=== PATIENT | male | born 1990 | race Caucasian/White ===

== ENCOUNTER 2023-01-31 19:03 | Inpatient (IN) ==
--- NOTE | 2023-01-31 19:15 | ED Triage Note ---
Date of Service January 31, 2023 History of Present Illness This patient was briefly evaluated while in triage. An abbreviated physical exam was performed. This patient is a 32-year-old Male who presents to the ED for evaluation of worsening mental health issues. Increased panic attacks and suicidal thoughts. Relapsed on meth last week. Physical Exam Limited Triage Exam: VITALS: Vitals are noted on the nurse's note and reviewed by myself. Vital s igns stable. GENERAL: White male who is anxious, but cooperative. HEART: Regular rate and rhythm without murmurs gallops or rubs. LUNGS: Clear to auscultation bilaterally without wheezes, rales or rhonchi. No retractions or accessory muscle use. NEURO: Patient was alert and oriented to person place and time. CN II through XII grossly intact. Initial orders for labs and / or imaging were placed and patient was placed in the waiting area until a bed is available. Please see further documentation for the full ED course. MDM / Impression Impression Impression: Bipolar disorder, Feeling suicidal
[2023-01-31 20:08] LABS: Basophils # (auto) 0.03 K/uL (0.00-0.20); Basophils % (auto) 0.4 %; Eosinophils % (auto) 7.2 %; Hemoglobin 15.7 g/dl (14.0-18.0); Immature Granulocytes # (auto) 0.04 K/uL (0.01-0.20); Immature Granulocytes % (auto) 0.5 %; Lymphocytes # (auto) 2.54 K/uL (1.20-3.40); Lymphocytes % (auto) 30.6 %; Mean Corpuscular Hemoglobin 30.7 pg (25.0-34.0); Mean Corpuscular Hgb Conc 34.1 g/dL (32.0-36.0); Mean Platelet Volume 10.1 fL (9.4-12.4); Monocytes # (auto) 0.56 K/uL (0.11-0.59); Monocytes % (auto) 6.7 %; Neutrophils # (auto) 4.54 K/uL (1.40-6.50); Neutrophils % (auto) 54.6 %; Platelet Count 247 K/uL (130-400); RDW Coefficient of Variation 12.1 % (11.5-14.5); RDW Standard Deviation 39.9 fL (36.4-46.3); Red Blood Count 5.11 M/uL (4.70-6.10); White Blood Count 8.31 K/ul (4.8-10.8)
[2023-01-31 20:26] LABS: Appearance Urine Clear (Clear); Bacteria Urine Automated Negative (Negative); Bilirubin Urine Negative (Negative); Blood Urine Negative (Negative); Color Urine Yellow; Epithelial Cell Urine Auto 20-30 /lpf (0-5); Glucose Urine UA Negative (Negative); Ketones Urine Negative (Negative); Leukocyte Esterase Urine Negative (Negative); Nitrite Urine Negative (Negative); Protein Urine 1+ (Negative); RBC Urine Automated 0-4 /hpf (0-4); Specific Gravity Urine 1.016 (1.000-1.030); Urobilinogen Urine Negative (Negative)
[2023-01-31 20:28] LABS: Acetaminophen < 3 ug/ml (10-30); Salicylate < 3.0 mg/dl (3.0-30)
[2023-01-31 20:31] LABS: Albumin Globulin Ratio 1.4 (0.9-2); Bilirubin,Total 0.3 mg/dl (0.2-1.0); Calcium 9.6 mg/dl (8.6-10.3); Creatinine Clr Calc Pharmacy 162.6 ml/min; Est GFR (Non-African American) 118.2 ml/min; Globulin 2.9 gm/dl (2.5-4.0); Potassium 3.5 mmol/L (3.5-5.1); Total Protein 6.9 gm/dl (6.0-8.3)
[2023-01-31 20:36] LABS: Sperm Urine Present (None Prsent)
[2023-01-31 20:37] LABS: Cast Urine Automated 0 /lpf (0-5); Mucus Urine Present (None Prsent)
[2023-01-31 20:45] LABS: Thyroid Stimulating Hormone 0.863 uIu/ml (0.300-4.500)
[2023-01-31 20:49] LABS: Amphetamines+Metham, Urine Pos (Neg); Barbiturates, Urine Neg (Neg); Benzodiazepine, Urine Pos (Neg); Cocaine, Urine Neg (Neg); MDMA (Ecstacy), Urine Pos (Neg); Methadone, Urine Neg (Neg); Opiate, Urine Neg (Neg); Phencyclidine, Urine Neg (Neg)
--- NOTE | 2023-01-31 20:53 | Emergency Department Note ---
Impression & Plan Bipolar disorder, Feeling suicidal ED Provider Note NAME: KAREN ANTONIO AGE: 32 SEX: M : 1990 ARRIVES VIA: Walk-In INFORMANT: Patient, ED PROVIDER(S): Lan Gautam MD CHIEF COMPLAINT: SI, relapse HPI: This is a 30-year-old male with history of anxiety, PTSD, bipolar disorder presenting for SI. Patient is that he has had increasing SI thoughts without active plan. He notes that he is also relapsed on methamphetamines over the past 3 days. He notes that he does not feel well, is taking medication as prescribed but is still not feeling better. He states that he is having increasing thoughts of suicide without thoughts of homicide. He is not hearing voices. No current chest pain, short of breath, fever, chills. ROS: See above HPI for pertinent positives & negatives. A total of 10 systems reviewed and were otherwise negative. PAST MEDICAL HISTORY: See Below PAST SURGICAL HISTORY: See Below FAMILY HISTORY: See Below SOCIAL HISTORY: See Below HOME MEDICATIONS: See Below ALLERGIES: See Below VITALS: See Below PHYSICAL EXAMINATION: General: resting comfortably in no acute distress Head: Normocephalic and atraumatic Eyes: Normal inspection, extraocular muscles intact, no conjunctival pallor Ear, nose, throat: Normal external exam Neck: Normal range of motion Respiratory: Patient is in no respiratory distress, lungs clear to auscultation bilaterally Cardiovascular: RRR without murmur appreciated GI: soft, nontender, no guarding or rebound Extremities: pulses intact with good cap refills, no LE pitting edema or calf tenderness Neuro: The patient awake and alert, appropriately conversive,no focal decifits Skin: Warm, dry, and intact MEDICAL DECISION MAKING: This is a 32-year-old male presenting for SI. Patient is voluntarily here requesting inpatient evaluation. He has no active plan but is significantly suicidal. We will get basic blood work and assess for medical clearance. Patient's blood work and urinalysis revealing of left any abnormalities. His UDS does reveal methamphetamines/amphetamines, MDMA, benzodiazepines and THC. Patient is medically clear at this time. patient voluntary signed 201. Patient taken upstairs for psychiatric evaluation Triage Nursing notes reviewed. Prior medical records reviewed Vital Signs: reviewed and remarkable for no significant abnormalities Past Med/Surg History Medical History (Updated 02/01/23 @ 01:30 by Lan Gautam MD) Anxiety PTSD (post-traumatic stress disorder) GERD (gastroesophageal reflux disease) Epigastric pain C. difficile colitis Bipolar disorder Surgical History History of hernia repair History of placement of ear tubes History of esophagogastroduodenoscopy (EGD) H/O wisdom tooth extraction Family History Other Diabetes Heart disease Hypertension Social History Smoking Status: Current every day smoker Tobacco Type: Cigarettes Hx Alcohol Use: Yes Alcohol Intake Frequency Comment: 2 times a year Hx Substance Use: Yes Preferred Language: Tajik marital status: Single current occupational status: unemployed Feels Safe at Home: Yes Gender Identity: Male Allergies Allergies Allergy/AdvReac Type Severity Reaction Status Date / Time No Known Allergies Allergy NONE Verified 02/26/18 17:11 Home Meds Home Medications Medication Instructions Recorded Confirmed prazosin 5 mg PO HS 02/13/21 01/31/23 Zyprexa 20 mg PO HS 11/19/21 01/31/23 melatonin 5 mg PO HS 11/19/21 01/31/23 Results & Data (ED) Vital Signs Vital Signs - 24 hr 01/31/23 19:14 01/31/23 23:32 Temperature 36.3 C L Temperature Source Temporal Artery Scan Pulse Rate 99 H Pulse Rate [Left Finger] 83 Respiratory Rate 18 20 Respiratory Effort / Characteristics Non-Labored Respiratory Depth Normal Respiratory Pattern Regular Blood Pressure 141/76 H Blood Pressure [Left Arm] 148/76 H Blood Pressure Mean 97 Blood Pressure Mean [Left Arm] 100 Pulse Oximetry 96 95 Oxygen Delivery Method Room Air Room Air Sepsis Recent Fever Within 48 Hours No Sepsis New/Unexplained Change in Mental Status N/A Sepsis Action Taken by Nursing No Action Required Laboratory Data 01/31/23 19:45 01/31/23 19:45 Lab Results 01/31/23 01/31/23 01/31/23 Range/Units 19:30 19:45 22:40 WBC 8.31 (4.8-10.8) K/ul RBC 5.11 (4.70-6.10) M/uL Hgb 15.7 (14.0-18.0) g/dl Hct 46.0 (42.0-52.0) % MCV 90.0 (80.0-100.0) fL MCH 30.7 (25.0-34.0) pg MCHC 34.1 (32.0-36.0) g/dL RDW Std Deviation 39.9 (36.4-46.3) fL RDW Coeff of Ade 12.1 (11.5-14.5) % Plt Count 247 (130-400) K/uL MPV 10.1 (9.4-12.4) fL Immature Gran % (Auto) 0.5 % Neut % (Auto) 54.6 % Lymph % (Auto) 30.6 % [place] % (Auto) 6.7 % Eos % (Auto) 7.2 % Baso % (Auto) 0.4 % Neut # (Auto) 4.54 (1.40-6.50) K/uL Lymph # (Auto) 2.54 (1.20-3.40) K/uL Bee # (Auto) 0.56 (0.11-0.59) K/uL Eos # (Auto) 0.60 H (0.00-0.50) K/uL Baso # (Auto) 0.03 (0.00-0.20) K/uL Immature Gran # (Auto) 0.04 (0.01-0.20) K/uL Sodium 139 (136-145) mmol/L Potassium 3.5 (3.5-5.1) mmol/L Chloride 105 (98-107) mmol/L Carbon Dioxide 25 (21-32) mmol/L Anion Gap 9 (3-11) BUN 8 (6-23) mg/dl Creatinine 0.80 (0.6-1.4) mg/dl Est Cr Clr Drug Dosing 162.6 ml/min Est GFR ( Amer) 137.0 ml/min Est GFR (Non-Af Amer) 118.2 ml/min BUN/Creatinine Ratio 10.0 (10-20) Glucose 115 H (70-99(Fasting)) mg/dl Calcium 9.6 (8.6-10.3) mg/dl Total Bilirubin 0.3 (0.2-1.0) mg/dl AST 13 (13-39) U/L ALT 15 (7-52) U/L Alkaline Phosphatase 65 (34-104) U/L Total Protein 6.9 (6.0-8.3) gm/dl Albumin 4.0 (3.4-5.0) gm/dl Globulin 2.9 (2.5-4.0) gm/dl Albumin/Globulin Ratio 1.4 (0.9-2) TSH 0.863 (0.300-4.500) uIu/ml Urine Color Yellow Urine Appearance Clear (Clear) Urine pH 6.0 (4.5-7.5) Ur Specific [place] 1.016 (1.000-1.030) Urine Protein 1+ H (Negative) Urine Glucose (UA) Negative (Negative) Urine Ketones Negative (Negative) Urine Blood Negative (Negative) Urine Nitrite Negative (Negative) Urine Bilirubin Negative (Negative) Urine Urobilinogen Negative (Negative) Ur Leukocyte Esterase Negative (Negative) Urine WBC (Auto) 1-5 (0-5) /hpf Urine RBC (Auto) 0-4 (0-4) /hpf U Hyaline Cast (Auto) 0 (0-5) /lpf U Epithel Cells (Auto) 20-30 H (0-5) /lpf Urine Bacteria (Auto) Negative (Negative) Urine Mucus Present A (None Prsent) Urine Sperm Present A (None Prsent) Salicylates < 3.0 L (3.0-30) mg/dl Urine Opiates Screen Neg (Neg) Ur Methadone, Qual Neg (Neg) Acetaminophen < 3 L (10-30) ug/ml Urine Barbiturates Neg (Neg) Ur Phencyclidine (PCP) Neg (Neg) U Amphetamin/Meth Scrn Pos H (Neg) MDMA (Ecstasy) Screen Pos H (Neg) U Benzodiazepines Scrn Pos H (Neg) Ur Cocaine Metabolite Neg (Neg) U Marijuana (THC) Screen Pos H (Neg) Ethyl Alcohol mg/dL < 10.0 (<10.0) mg/dl SARS-CoV-2, RNA, NAAT NEGATIVE (NEGATIVE) Discharge Plan Visit Data Chief Complaint: Mental Health Evaluation Stated Complaint: MENTAL HEALTH EVALUATION ED Provider: Lan Gautam Discharge Problem: Bipolar disorder, Feeling suicidal Patient Disposition: Admitted As Inpatient Discharge Instructions Interventions: ED Discharge Assessment Last Done: 02/01/23 00:13
[2023-02-01] MEDS ORDERED: BISMUTH SUBSALICYLATE LIQD 236 ML PO PRN (02:36)
[2023-02-01] MEDS ORDERED: hydrOXYzine HCl 25 MG TAB PO PRN ×2 (02:36)
[2023-02-01] MEDS ORDERED: ALUMINUM/MAGNESIUM SUSP 30 ML UDC PO PRN (02:36)
[2023-02-01] MEDS ORDERED: ACETAMINOPHEN 325 MG TAB PO PRN (02:36)
[2023-02-01] MEDS ORDERED: MAGNESIUM HYDROXIDE SUSP 30 ML UDC PO PRN (02:36)
[2023-02-01] MEDS ORDERED: NICOTINE POLACRILEX 2 MG GUM MT PRN (02:36)
[2023-02-01] MEDS ORDERED: SODIUM CHLORIDE 0.65% NA SOLN 45 ML (OCEAN) PRN (02:36)
[2023-02-01] MEDS ORDERED: NICOTINE 21 MG/24 HR TDSY TD SCH (09:00)
[2023-02-01] MEDS ORDERED: NAPROXEN 250 MG TAB PO PRN (11:05)
[2023-02-01] MEDS ORDERED: BACLOFEN 10 MG TAB PO PRN (11:05)
[2023-02-01] MEDS ORDERED: BENZTROPINE MESYLATE 1 MG TAB PO PRN (11:07)
[2023-02-01] MEDS ORDERED: haloperidoL 5 MG TAB PO PRN (11:07)
--- NOTE | 2023-02-01 14:26 | History & Physical ---
Date of Service February 01, 2023 Impression / Recommendations Impression 32 yo male with hx of multiple psychiatric diagnoses and tox screen positive for benzos, MJ, and amphetamines. Unclear if irritability is related to recent substance use, paranoia, or underlying personality disorder. Unable to fully delineate mood do hx at this time but will continue Bipolar dx. MNPR due to explosiveness Overall, I spent a total of 58 minutes with this case, including review of chart, direct evaluation of the patient, ordering medication, coordination with nursing, interdisciplinary team meeting, risk assessment, and documentation. (1) Bipolar disorder: Active/Remission status: currently active Current bipolar episode type: mixed Current episode severity: moderate Qualified Code(s): F31.62 - Bipolar disorder, current episode mixed, moderate (2) Polysubstance abuse: Plan The patient was admitted to the [facility] ([facility] unit) on q15 min checks (behavioral with suicide precautions) for safety. The patient will participate in group, recreational, and milieu therapies and will be offered additional individual and family sessions as clinically appropriate. Unable to participate in brief counseling intervention for his substance abuse. GERARD when able for records from outpatient providers and most recent hospitalization. Patient was unwilling to continue interview to discuss medications so continue home meds per surescripts pending records with Bettye martin agitation. Inventory Assets Strengths: voluntary patient, has outpatient providers Needs: improve insight and cooperation with treatment team Suicide Risk Level Suicide Risk Level: High-Moderate (q15 min suicide checks) Risk Factors Assessment Male: Yes : Yes Mental Health Diagnoses: Yes Substance Use Disorders: Yes Previous Attempt: Yes Previous Psychiatric Hospitalization: Yes Protective Factors Assessment Employed: Yes Psychiatric History Identifying Data KAREN ANTONIO is a 32-year-old M who currently lives in [place], has a history of multiple inpatient hospitalizations, and was admitted on 02/01/23 00:01 on a 201 voluntary commitment for SI. Chief Complaint "These questions don't seem relevant, I'm done, I want out of this room." History of Present Illness History is limited as patient irritable, did not want to complete social work assessment. Has reported that he doesn't feel psych meds are working. Reviewed multiple ED visits 02/13/21, 11/19/21, 05/29/22, etc during which he expressed SI and even an OD of clonidine in Apr 2022. He was typically seeking admission to [facility], apparently 1 previous admission 3S "years ago" prior to EHR update. Patient seems to have been on Zyprexa for extended period. Wasn't willing to fully discuss his social situation other than no contact with his only daughter. Initially denied a history of aggression or any active legal but unclear if accurate. So far has been in room, only out for meal after others have eaten. Has been using unknown amount of meth recently. Tested positive for multiple substances. Refused rehab/dual dx placement by ED. Past Psychiatric History Current Psychiatric Diagnosis: PTSD, ADHD, Anxiety, Bipolar, Addiction, Borderline Personality disord Outpatient Services: meds: Dr. Mosquera therapy: CBT Berenice and D&A counselor History of Previous Suicide Attempt: Yes (3x) Describe Attempts in the Past: OD clonidine 2022, ICU admit 2012 for OD 6 month stockpile of meds Allergies Allergy/AdvReac Type Severity Reaction Status Date / Time No Known Allergies Allergy NONE Verified 02/26/18 17:11 Home Medications Medication Instructions Recorded Confirmed Type prazosin 5 mg PO HS 02/13/21 01/31/23 History Zyprexa 20 mg PO HS 11/19/21 01/31/23 History melatonin 5 mg PO HS 11/19/21 01/31/23 History Family History Family History of: Depression, Anxiety and Bipolar Alcohol History Hx of Alcohol Use Over the Past 12 Months: Yes AUDIT Total Score: 0 Smoking Use Have You Smoked or Used Tobacco Products in the Last 30 Days: Yes tobacco type: cigarettes Smoking Status: Current every day smoker Smoking packs per day: 1.5 Substance History Hx of Prescription Med Misuse Over the Past 12 Months: No Hx of Over the Counter Med Misuse Over the Past 12 Months: No Hx of Inhalent Misuse Over the Past 12 Months: No Hx of Organic Substance Use Over the Past 12 Months: Yes Hx of Illegal Substances/Street Drug Use Over Past 12 Months: Yes Problems as a Result of Past Substance Use: Life out of Control and Attempted Suicide Personal History Living Arrangements: Apartment Marital Status: Single Number Of Children: 1 Beliefs That Will Affect Care: None Patient History Medical History (Updated 02/01/23 @ 14:23 by Dorcas Owens MD) Anxiety PTSD (post-traumatic stress disorder) GERD (gastroesophageal reflux disease) Epigastric pain C. 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 Beliefs That Will Affect Care: None marital status: Single current occupational status: unemployed Feels Safe at Home: Yes Gender Identity: Male Review of Systems Review of Systems: All systems reviewed & are unremarkable except as noted in HPI & below Physical Exam Psychiatric: Orientation: alert Apperance: appropriately dressed and appropriately groomed Eye Contact: + fair eye contact Motor Behavior: no abnormal motor movements Speech: normal rate/rhythm/volume of speech (but quickly becomes loud) Affect: + labile affect and + irritable affect Mood: + angry mood Thought Process: + concrete thought process Thought Content: reality based without delusions Suicidal Thoughts: + reports suicidal thoughts Homicidal Thoughts: denies homicidal thoughts Hallucinations: no auditory hallucinations and no visual hallucinations Cognition: language grossly intact; + attention not intact Estimated Intelligence: consistent with education level Insight: + poor insight Judgment: + poor judgement Vital Signs (Past 24 Hours): Last Vital Signs Temp 36.3 C L 02/01/23 00:51 Pulse 82 02/01/23 06:38 Resp 16 02/01/23 06:38 BP 121/73 02/01/23 06:38 Pulse Ox 95 02/01/23 00:51 O2 Del Method Room Air 02/01/23 00:51 Exam Statement: A physical exam was performed in the ED by Dr. Gautam for the purposes of medical clearance. I accept that physical as correct and adequate for the purposes of the inpatient physical exam. Results & Data ([facility]) Laboratory Results Laboratory Results - last 24 hr 01/31/23 01/31/23 01/31/23 19:30 19:45 22:40 WBC 8.31 RBC 5.11 Hgb 15.7 Hct 46.0 MCV 90.0 MCH 30.7 MCHC 34.1 RDW Std Deviation 39.9 RDW Coeff of Ade 12.1 Plt Count 247 MPV 10.1 Immature Gran % (Auto) 0.5 Neut % (Auto) 54.6 Lymph % (Auto) 30.6 [place] % (Auto) 6.7 Eos % (Auto) 7.2 Baso % (Auto) 0.4 Neut # (Auto) 4.54 Lymph # (Auto) 2.54 [place] # (Auto) 0.56 Eos # (Auto) 0.60 H Baso # (Auto) 0.03 Immature Gran # (Auto) 0.04 Sodium 139 Potassium 3.5 Chloride 105 Carbon Dioxide 25 Anion Gap 9 BUN 8 Creatinine 0.80 Est Cr Clr Drug Dosing 162.6 Est GFR ( Amer) 137.0 Est GFR (Non-Af Amer) 118.2 BUN/Creatinine Ratio 10.0 Glucose 115 H Calcium 9.6 Total Bilirubin 0.3 AST 13 ALT 15 Alkaline Phosphatase 65 Total Protein 6.9 Albumin 4.0 Globulin 2.9 Albumin/Globulin Ratio 1.4 TSH 0.863 Urine Color Yellow Urine Appearance Clear Urine pH 6.0 Ur Specific [place] 1.016 Urine Protein 1+ H Urine Glucose (UA) Negative Urine Ketones Negative Urine Blood Negative Urine Nitrite Negative Urine Bilirubin Negative Urine Urobilinogen Negative Ur Leukocyte Esterase Negative Urine WBC (Auto) 1-5 Urine RBC (Auto) 0-4 U Hyaline Cast (Auto) 0 U Epithel Cells (Auto) 20-30 H Urine Bacteria (Auto) Negative Urine Mucus Present A Urine Sperm Present A Salicylates < 3.0 L Urine Opiates Screen Neg Ur Methadone, Qual Neg Acetaminophen < 3 L Urine Barbiturates Neg Ur Phencyclidine (PCP) Neg U Amphetamines Confirm Pending U Amphetamin/Meth Scrn Pos H U Methamphetamin Confrm Pending Urine MDEA Pending MDMA (Ecstasy) Screen Pos H MDMA Pending Urine MDMA Pending U [place]-Alprazolam Confrm Pending U Benzodiazepines Scrn Pos H 7-[place] Clonazepam Pending Ur Nordiazepam Confirm Pending U [place]-ethylflurazepam Pending U Lorazepam Cnf GC/MS Pending U Oxazepam Confm GC/MS Pending Ur Temazepam Confirm Pending U [place]-Triazolam Confirm Pending U [place]-Midazolam Confirm Pending Ur Cocaine Metabolite Neg U Marijuana (THC) Screen Pos H U Marijuana THC Carboxy Pending Drug Screen Comment Pending Ethyl Alcohol mg/dL < 10.0 SARS-CoV-2, RNA, NAAT NEGATIVE Current Inpatient Medications Current Inpatient Medications: Current Inpatient Medications Acetaminophen (Acetaminophen 325 Mg Tab) 650 mg PO Q4H PRN PRN Reason: Headache or Minor Fever Stop: 03/03/23 02:35 Al Hydrox/Mg Hydrox/Simethicone (Aluminum/Magnesium Susp 30 Ml Udc) 30 ml PO Q4H PRN PRN Reason: GI Upset Stop: 03/03/23 02:35 Baclofen (Baclofen 10 Mg Tab) 10 mg PO HS PRN PRN Reason: Muscle Spasm Stop: 03/03/23 21:59 Benztropine Mesylate (Benztropine Mesylate 1 Mg Tab) 1 mg PO Q6 PRN PRN Reason: EPS from Haldol Stop: 03/03/23 11:59 Bismuth Subsalicylate (Bismuth Subsalicylate Liqd 236 Ml) 15 ml PO PRN PRN PRN Reason: Loose Stool Stop: 03/03/23 02:35 Famotidine (Famotidine 20 Mg Tab) 20 mg PO QPM ANTONETTE Stop: 03/03/23 20:59 Haloperidol (Haloperidol 5 Mg Tab) 5 mg PO Q6 PRN PRN Reason: Agitation Stop: 03/03/23 11:06 Hydroxyzine HCl (Hydroxyzine Hcl 25 Mg Tab) 50 mg PO HSZ PRN PRN Reason: Insomnia Stop: 03/03/23 02:35 Hydroxyzine HCl (Hydroxyzine Hcl 25 Mg Tab) 25 mg PO Q4H PRN PRN Reason: Anxiety Stop: 03/03/23 02:35 Lamotrigine (Lamotrigine 100 Mg Tab) 100 mg PO QPM ANTONETTE Stop: 03/03/23 20:59 Lamotrigine (Lamotrigine 25 Mg Tab) 25 mg PO QPM ANTONETTE Stop: 03/03/23 20:59 Magnesium Hydroxide (Magnesium Hydroxide Susp 30 Ml Udc) 30 ml PO DAILY PRN PRN Reason: Constipation Stop: 03/03/23 02:35 Miscellaneous (Remove Nicoderm Patch) 1 each N/A DAILY@0859 ANTONETTE Stop: 03/03/23 08:58 Last Admin: 02/01/23 09:57 Dose: 1 each Naproxen (Naproxen 250 Mg Tab) 250 mg PO BID PRN PRN Reason: Pain Stop: 03/03/23 11:04 Nicotine (Nicotine 21 Mg/24 Hr Tdsy) 21 mg TD QAM ANTONETTE Stop: 03/03/23 08:59 Last Admin: 02/01/23 09:56 Dose: 21 mg Nicotine Polacrilex (Nicotine Polacrilex 2 Mg Gum) 2 piece MT PRN PRN PRN Reason: Nicotine Withdrawal Symptoms Stop: 03/03/23 02:35 Olanzapine (Olanzapine 20 Mg Tablet) 20 mg PO HS ANTONETTE Stop: 03/03/23 21:59 Prazosin HCl (Prazosin Hcl 1 Mg Cap) 5 mg PO HS ANTONETTE Stop: 03/03/23 21:59 Sodium Chloride (Sodium Chloride 0.65% Na Soln 45 Ml ([place])) 1 - 2 sprays NA PRN PRN PRN Reason: Nasal Dryness/Congestion Stop: 03/03/23 02:35
[2023-02-01] MEDS ORDERED: lamoTRIgine 25 MG TAB PO SCH (21:00)
[2023-02-01] MEDS ORDERED: lamoTRIgine 100 MG TAB PO SCH (21:00)
[2023-02-01] MEDS ORDERED: FAMOTIDINE 20 MG TAB PO SCH (21:00)
[2023-02-01] MEDS ORDERED: PRAZOSIN HCL 1 MG CAP PO SCH (22:00)
[2023-02-01] MEDS ORDERED: OLANZapine 20 MG TABLET PO SCH (22:00)
--- NOTE | 2023-02-02 16:40 | Discharge Summary ---
Date of Service February 02, 2023 History of Present Illness History is limited as patient irritable, did not want to complete social work assessment. Has reported that he doesn't feel psych meds are working. Reviewed multiple ED visits 02/13/21, 11/19/21, 05/29/22, etc during which he expressed SI and even an OD of clonidine in Apr 2022. He was typically seeking admission to [facility], apparently 1 previous admission 3S "years ago" prior to EHR update. Patient seems to have been on Zyprexa for extended period. Wasn't willing to fully discuss his social situation other than no contact with his only daughter. Initially denied a history of aggression or any active legal but unclear if accurate. So far has been in room, only out for meal after others have eaten. Has been using unknown amount of meth recently. Tested positive for multiple substances. Refused rehab/dual dx placement by ED. Physical Exam Psychiatric See admission H&P and DOD assessment. Vital Signs (Past 24 Hours) Last Vital Signs Temp 36.3 C L 02/02/23 10:21 Pulse 95 H 02/02/23 10:21 Resp 16 02/02/23 10:21 BP 121/73 02/02/23 10:21 Pulse Ox 95 02/02/23 10:21 O2 Del Method Room Air 02/01/23 00:51 Principal Diagnosis bipolar disorder (by history) Psychiatric Data See daily stay summary. In short, safety was maintained and the patient was consistently uncooperative with care. During the social work assessment he sat calmly to answer questions and then abruptly yelled and refused to continue the interview when he viewed the questions as irrelevant. He did not attend groups but ate, slept, and maintained his personal hygiene. He was only irritable when staff tried to engage in treatment yet he was help rejecting. Medications could not be assessed as he repeatedly refused to engage with provider. The patient had expressed passive wish in the context of meth use in the ED without plan or intent. He refused to discuss rehab or dual dx treatment. Although his personality was intermittently explosive, he exhibited no signs of tanner or psychosis. His irritability is likely a factor of suboptimal control of his mood disorder in the setting of meth discontinuation vs. personality disorder. Today he is loud and disruptive to the milieu demanding discharge. He has aftercare in place and no medication changes were made so no scripts were given. He composed himself with security presence on the unit and denied suicidal thoughts. Although the patient would benefit from ongoing inpatient care, his condition does not meet criteria for involuntary commitment [place] mental health law as there is no active tanner or psychosis interfering with his medical decision making. He would benefit from a higher level of D&A programming but cannot be forced to do so [place] health law. Day of Discharge Assessment See above. Today the patient demands discharge. They remain irritable but have verbalized no thoughts to harm self or others during therapy or discharge process. His thoughts remain organized. There is no evidence of psychosis. Transition of Care Transition Of Care Record: was reviewed with the patient (patient refused) Advance Directives Advance Directives Information Provided: Yes Advance Directives: No Mental Health Advance Directive: No Advance Directives on File: No Living Will: No Power of Front Desk Auxiliary: No Advance Directives Reason:: Declines as Mental Health Visit. Suicide Risk Level Suicide Risk Level Comments: Suicide risk at discharge is deemed low as the patient is no longer requiring 24-hr monitoring and denied suicidal ideation at discharge. Risk Factors Assessment Male: Yes : Yes Mental Health Diagnoses: Yes Substance Use Disorders: Yes Previous Attempt: Yes Previous Psychiatric Hospitalization: Yes Protective Factors Assessment Employed: Yes Tobacco Cessation at Discharge Tobacco Cessation Medication Prescribed at Discharge: Offered & Pt Refused Total Time Total Time Spent: Greater Than 30 Minutes (32 min) Total Time Includes: Examination of the patient, Discharge Planning, Medication Reconciliation and As well as (overseeing staff and security in safe exit from unit.) Discharge Data Lab Results 01/31/23 01/31/23 01/31/23 19:30 19:45 22:40 WBC 8.31 RBC 5.11 Hgb 15.7 Hct 46.0 MCV 90.0 MCH 30.7 MCHC 34.1 RDW Std Deviation 39.9 RDW Coeff of Ade 12.1 Plt Count 247 MPV 10.1 Immature Gran % (Auto) 0.5 Neut % (Auto) 54.6 Lymph % (Auto) 30.6 [place] % (Auto) 6.7 Eos % (Auto) 7.2 Baso % (Auto) 0.4 Neut # (Auto) 4.54 Lymph # (Auto) 2.54 [place] # (Auto) 0.56 Eos # (Auto) 0.60 H Baso # (Auto) 0.03 Immature Gran # (Auto) 0.04 Sodium 139 Potassium 3.5 Chloride 105 Carbon Dioxide 25 Anion Gap 9 BUN 8 Creatinine 0.80 Est Cr Clr Drug Dosing 162.6 Est GFR ( Amer) 137.0 Est GFR (Non-Af Amer) 118.2 BUN/Creatinine Ratio 10.0 Glucose 115 H Calcium 9.6 Total Bilirubin 0.3 AST 13 ALT 15 Alkaline Phosphatase 65 Total Protein 6.9 Albumin 4.0 Globulin 2.9 Albumin/Globulin Ratio 1.4 TSH 0.863 Urine Color Yellow Urine Appearance Clear Urine pH 6.0 Ur Specific [place] 1.016 Urine Protein 1+ H Urine Glucose (UA) Negative Urine Ketones Negative Urine Blood Negative Urine Nitrite Negative Urine Bilirubin Negative Urine Urobilinogen Negative Ur Leukocyte Esterase Negative Urine WBC (Auto) 1-5 Urine RBC (Auto) 0-4 U Hyaline Cast (Auto) 0 U Epithel Cells (Auto) 20-30 H Urine Bacteria (Auto) Negative Urine Mucus Present A Urine Sperm Present A Salicylates < 3.0 L Urine Opiates Screen Neg Ur Methadone, Qual Neg Acetaminophen < 3 L Urine Barbiturates Neg Ur Phencyclidine (PCP) Neg U Amphetamin/Meth Scrn Pos H MDMA (Ecstasy) Screen Pos H U Benzodiazepines Scrn Pos H Ur Cocaine Metabolite Neg U Marijuana (THC) Screen Pos H Ethyl Alcohol mg/dL < 10.0 SARS-CoV-2, RNA, NAAT NEGATIVE Hospital Course (1) Bipolar disorder: (2) Polysubstance abuse: Plan The patient was admitted to the [facility] ([facility]) on q15 min checks (behavioral with suicide precautions) for safety. The patient will participate in group, recreational, and milieu therapies and will be offered additional individual and family sessions as clinically appropriate. Unable to participate in brief counseling intervention for his substance abuse. GERARD when able for records from outpatient providers and most recent hospitalization. Patient was unwilling to continue interview to discuss medications so continue home meds per surescripts pending records with Haldol prn agitation. Mental Health & Subst Abuse Tx Psychiatrist Name of Psychiatrist: Jeannie Byers - Dr. Padron Psychiatrist's Date Of Appointment With Psychiatric Provider: 02/08/23 Time of Appointment with Psychiatrist: 2:00 PM Psychiatric Appointment Comment: [address] [place] [address] Therapist Name of Therapist: Fabiana Duarte LCSW Therapist's Time of Therapist Appointment: [address] [place] [id number] Therapy Appointment Comment: Please resume your normal therapy schedule. Post Discharge Appointments Primary Care Physician Name Of Family Doctor/PCP: [facility] - Dr. Stubbs Primary Care Time of Appointment with PCP: [address] [facility] [place] [address] Provider Appointment Comment: Please follow-up as needed. Smoking Cessation Counseling Tobacco Cessation Medication Prescribed at Discharge: Offered & Pt Refused Other #1: Name of Aftercare Appointment: [facility] - Nely Gr Phone Number of Aftercare Appointment: [phone] Date of Aftercare Appointment: 02/15/23 Time of Aftercare Appointment: 1:30 PM Aftercare Appointment Comment: [address] [place] [address] Contact Information Discharge Discharge Address: [address] [place] [address] Discharge Plan Discharge Items Patient Disposition: Home - Self-Care Reason For Visit: MAJOR DEPRESSIVE DISORDER Discharge Diagnosis: same Activity: Resume your previous activity Non-emergency contact: Primary Care Provider, Psychiatrist and Therapist Call non-emergency contact if: you have any medication questions and your symptoms worsen Follow-up/Referrals: Melchor Stubbs DO [Primary Care Provider] - Diet: Regular Addtl Attending Provider Instructions: SPECIAL CARE INSTRUCTIONS: 1. Follow through with your scheduled aftercare appointments. If unable to keep an appointment, please call to reschedule. 2. Take your medication only as prescribed. Medication should not be changed or stopped without the approval of your doctor. In the event of worsening symptoms or concerns about side effects, contact your doctor immediately. 3. Utilize new healthy coping skills, anger management skills, and stress management skills learned during your hospitalization. Journal feelings and process them with a support person. Identify stressors or situations that may result in relapse, deterioration or inappropriate behaviors and develop a plan to deal with those issues. 4. If your coping skills are ineffective and you are in crisis, contact your outpatient providers for direction. If unable to reach your providers, please call the [facility] CRISIS LINE AT , go to the [facility] walk-in center at [address], [address], [place], or go to the closest Emergency Room. 5. Avoid alcohol and un-prescribed drugs. 6. You have been provided with the Mental Health Advance Directives Pamphlet for your review. 7. Your condition is stable for discharge to outpatient level of care, but recovery is an ongoing process. Ifthoughts to harm yourself or others return, follow the safety plan developed during your stay. Planning for a safe return home includes securing weapons. Our treatment team recommends weaponsbe removed from the home until your outpatient provider reassesses your progress. In rare cases where the items themselvescannot be removed, guns and ammunitionshould be secured separatelyand keys stored by a reliable personoutside of the home. If you were admitted on an involuntary commitment, the police or other legal authorities may be involved in this process. AFTERCARE APPOINTMENTS: * Please call your insurance company prior to your scheduled appointment to confirm your aftercare providers are covered. Take your insurance information to your appointments. WHO TO CALL AND WHEN: Medical Emergencies: For questions or emergencies related to your hospital stay, please contact the Inpatient Behavioral Health Unit at [phone]. A booster station operator is on-call 17/10 for the Behavioral Health Unit for emergencies At any time you feel your situation is an emergency, you may also call 911 immediately. Pending Studies at Discharge: No Stand-Alone Forms: My [facility], Smoking Cessation Medications and DC Order Prescriptions: New naproxen 250 mg Tablet 250 mg PO BID PRN (Reason: pain) Qty: 1 0RF lamotrigine [Lamictal] 25 mg Tablet 25 mg PO QPM Qty: 1 0RF famotidine 20 mg Tablet 20 mg PO QPM Qty: 1 0RF baclofen 10 mg Tablet 10 mg PO HS PRN (Reason: muscle spasm) Qty: 1 0RF lamotrigine 100 mg Tablet 100 mg PO QPM Qty: 1 0RF Continued prazosin 5 mg PO HS Zyprexa 20 mg PO HS melatonin tablet 5 mg PO HS Discharge Orders: Discharge Order (Routine); Ordered 02/02/23 Ordered By: Dorcas Owens Admission Data Admit Date/Time: 02/01/23 00:01 Attending Provider: Dorcas Owens Admit Provider: Dorcas Owens Primary Care Provider: Melchor Stubbs Other Interventions: Discharge Summary Assessment (RN) Last Done: 02/02/23 10:21 PSY Interdisciplinary Discharge Planning Last Done: 02/02/23 10:20 Coding Level of Care Code 44125 D/C day mgmt > 30 min Diagnoses Bipolar disorder, current episode mixed, moderate F31.62 Active/Remission status: currently active Current bipolar episode type: mixed Current episode severity: moderate Polysubstance abuse F19.10
== END 2023-02-02 10:32 | disposition home or self-care (01) | DRG 885 ==
LOC: ED 19:03 → 3S 02-01 00:01